=== PATIENT | male | born 1975 | race Caucasian/White ===

== ENCOUNTER 2019-09-13 12:22 | Emergency (ER) | payer OTHER ==
[~2019-09-13] VITALS: Ht 162.5 cm; Wt 81.6 kg
== END 2019-09-13 13:25 | disposition home or self-care (01) ==
LOC: ED 12:22
DX: S86.912A Strain of unspecified muscle(s) and tendon(s) at lower leg level, left leg, initial encounter (principal); X58.XXXA Exposure to other specified factors, initial encounter; Y93.89 Activity, other specified; Y92.69 Other specified industrial and construction area as the place of occurrence of the external cause; Y99.0 Civilian activity done for income or pay